=== PATIENT | male | born 1930 | race Caucasian/White ===

== ENCOUNTER 2019-08-09 22:18 | Emergency (ER) | payer MEDICAID ==
[~2019-08-09] VITALS: Ht 167.6 cm; Wt 68.0 kg
--- NOTE | 2019-08-09 22:18 | NUR ---
PT TO ER BB RA FOR ALTERED MENTAL STATUS. WITNESSED GLF. - KO. SMELL OF ETOH ON BREATH. HEMATOMA TO POSTERIOR SCALP. PT TO ER BED, CHANGED INTO GOWN. NO OTHER SIGNS OF TRAUMA NOTED. PT CONNECTED TO MONITOR. PT VITAL SIGNS STABLE. WILL CONT TO MONITOR PT.
--- NOTE | 2019-08-09 22:21 | NUR ---
ER OTILIA NOBLE AT BEDSIDE TO EVAL PT WITH ORDERS RECEIVED. WILL CARRY OUT ORDERS.
--- NOTE | 2019-08-10 00:01 | NUR ---
PT ASLEEP, NO ACUTE DISTRESS NOTED, RESP EVEN AND UNLABORED. CALL LIGHT WITHIN REACH. WILL CONTINUE TO MONITOR PT CLOSELY.
--- NOTE | 2019-08-10 02:12 | NUR ---
PT SLEEPING IN GURNEY. PT SLEEPING IN RWEBB. NO SIGNS OF DISTRESS NOTED. PT VITAL SIGNS STABLE. BREATHS EQUAL AND UNLABORED. WILL CONT TO MONITOR PT.
--- NOTE | 2019-08-10 04:35 | NUR ---
PT AMBULATORY TO RESTROOM. PT CURRENTLY A/OX3. ABLE TO PROVIDE NAME AND .
--- NOTE | 2019-08-10 06:15 | NUR ---
PT SLEEPING IN GURNEY, NO SIGNS OF DISTRESS NOTED. PT VITAL SIGNS STABLE. BREATHS EQUAL AND UNLABORED. WILL CONT TO MONITOR PT.
--- NOTE | 2019-08-10 06:40 | NUR ---
PT BROTHER CELIO
--- NOTE | 2019-08-10 06:52 | NUR ---
ALIS URIBE SISTER IN LAW WILL COME TO TOE SEWER PT IN 30 MIN.
--- NOTE | 2019-08-10 07:40 | NUR ---
Patient discharged to home in stable condition. Written and verbal after care instructions given. Patient verbalizes understanding of instruction.
[2019-08-10 07:41] VITALS: BP 131/77
== END 2019-08-10 07:42 | disposition home or self-care (01) ==
LOC: EDBD 22:20 → ER 22:20
DX: S00.83XA Contusion of other part of head, initial encounter (principal); S00.03XA Contusion of scalp, initial encounter; F10.129 Alcohol abuse with intoxication, unspecified; R41.82 Altered mental status, unspecified; I10 Essential (primary) hypertension; Y90.9 Presence of alcohol in blood, level not specified; W18.39XA Other fall on same level, initial encounter; Y93.89 Activity, other specified; Y92.89 Other specified places as the place of occurrence of the external cause; Y99.8 Other external cause status; Z59.0 Homelessness
CPT/HCPCS: 70450-TC; 82962-TC